=== PATIENT | male | born 1965 | race Caucasian/White ===

== ENCOUNTER 2024-05-26 05:38 | Day surgery (SDC) | payer BC ==
[2024-05-20 10:51] LABS: BASOPHILS % (AUTO) 0.7 % (0-1); EOSINOPHILS # (AUTO) 0.1 X10'3 (0-0.9); EOSINOPHILS % (AUTO) 2.7 % (0-6); LYMPHOCYTES # (AUTO) 1.7 X10'3 (1.1-4.8); LYMPHOCYTES % (AUTO) 34.6 % (21-51); MEAN CORPUSCULAR HEMOGLOBIN 29.9 PG (27.0-31.0); MEAN CORPUSCULAR VOLUME 87.8 FL (78-98); MEAN PLATELET VOLUME 8.4 FL (7.4-10.4); MONOCYTES # (AUTO) 0.4 X10'3 (0-0.9); MONOCYTES % (AUTO) 9.1 % (2-12); NEUTROPHILS # (AUTO) 2.5 X10'3 (1.8-7.7); NEUTROPHILS % (AUTO) 52.9 % (42-75); PRE OP HEMATOCRIT 44.1 % (42.0-52.0); PRE OP PLATELET COUNT 221 X10'3 (140-440); PRE OP WHITE BLOOD COUNT 4.8 10'3 (4.8-10.8); RED BLOOD COUNT 5.02 X10'6 (4.70-6.10); RED CELL DISTRIBUTION WIDTH 13.4 % (11.5-14.5)
[2024-05-20 10:59] LABS: ALBUMIN 3.8 G/DL (3.4-5.0); ALBUMIN/GLOBULIN RATIO 1.1 (1.1-1.5); ALKALINE PHOSPHATASE 77 IU/L (46-116); BLOOD UREA NITROGEN 20 MG/DL (7-18); BUN/CREATININE RATIO 18.7 (10.0-20.0); CALCIUM 8.9 MG/DL (8.5-10.1); CHLORIDE 103 MMOL/L (99-107); CREATININE 1.07 MG/DL (0.60-1.10); PRE OP ALT 35 U/L (30-65); PRE OP ANION GAP 6 (8-16); PRE OP AST 23 U/L (10-37); PRE OP BILIRUB, TOTAL 0.7 MG/DL (0.0-1.0); PRE OP GLUCOSE 79 MG/DL (70-104); PRE OP POTASSIUM 3.8 MMOL/L (3.4-5.1); PRE OP SODIUM 138 MMOL/L (135-145); TOTAL CARBON DIOXIDE 28.7 MMOL/L (24-32); TOTAL PROTEIN 7.2 G/DL (6.4-8.2); eGFR 71 ML/MIN
[~2024-05-26] VITALS: Ht 180.3 cm; Wt 83.2 kg
[2024-05-26] VITALS (12 sets, daily range): BP systolic 108–136; BP diastolic 52–80; PULSE 57–76; RESP 12–16; TEMP 98; O2SAT 98–100
[~2024-05-26 05:38] MED LIST: NO HOME MEDS
[2024-05-26] MEDS: ringers solution, lacted 1,000 ML IV SCH (06:08)
[2024-05-26] MEDS: famotidine 20mg tablet PO ONE (06:08)
[2024-05-26] MEDS: ceFAZolin 2gm in dextrose, iso 50 ML IV ONE (06:09)
[2024-05-26] MEDS ORDERED: LIDOcaine 1% 30ml preserv. free vial ONE (06:50)
[2024-05-26] MEDS ORDERED: BUPIVAcaine 2.5mg/ml inj 50ml vial (contains preservative) ONE (06:51)
[2024-05-26] MEDS ORDERED: propofol inj 20 ML IV ONE (07:17)
[2024-05-26] MEDS ORDERED: midazolam 1 mg/ML 2ml injection ONE (07:17)
[2024-05-26] MEDS ORDERED: fentaNYL/PF 50MCG/1 ML 2ML syringe ONE (07:17)
[2024-05-26] MEDS ORDERED: rocuronium 10mg/ml inj IV ONE (07:18)
[2024-05-26] MEDS ORDERED: sevoflurane 250ml liquid IH ONE (07:24)
[2024-05-26] MEDS ORDERED: acetaminophen 1,000mg/100ml IV 100 ML IV ONE (07:40)
[2024-05-26] MEDS ORDERED: ondansetron/PF 4mg/2ml inj IV PRN (08:10)
[2024-05-26] MEDS ORDERED: morphine 2 MG/ML inj. syringe IV PRN (08:10)
[2024-05-26] MEDS ORDERED: proCHLORperazine 10 MG/2 ml inj IV PRN (08:10)
[2024-05-26] MEDS ORDERED: morphine 4 MG/ML inj SYRINge IV PRN (08:10)
[2024-05-26] MEDS ORDERED: meperidine/PF 25mg/ml syringe IV PRN ×2 (08:10)
[2024-05-26] MEDS ORDERED: ringers solution, lacted 1,000 ML IV SCH (08:10)
[2024-05-26] MEDS ORDERED: dexamethasone sod phosphate 4mg/ml inj. ONE (08:37)
[2024-05-26] MEDS ORDERED: ondansetron/PF 4mg/2ml inj ONE (08:38)
[2024-05-26] MEDS ORDERED: glycopyrrolate 0.2mg/ml inj ONE (08:46)
[2024-05-26] MEDS ORDERED: neostigmine methylsulfate 1 MG/ML 10ml vial ONE (08:46)
[2024-05-26] MEDS: ketorolac trometh 30MG/ML vial 30 MG/ML VIAL IV ONE (09:12)
[2024-05-26] MEDS: meperidine/PF 25mg/ml syringe IV PRN (09:12)
[2024-05-26] MEDS: HYDROcodone/acetaminophen 5mg/325mg tablet PO PRN (09:44)
== END 2024-05-26 11:05 | disposition home or self-care (01) ==
LOC: PAS 05:38
PROVIDERS: ATTEND Surgery
DX: K40.20 Bilateral inguinal hernia, without obstruction or gangrene, not specified as recurrent (principal); K42.9 Umbilical hernia without obstruction or gangrene; R00.1 Bradycardia, unspecified; Z98.890 Other specified postprocedural states
CPT/HCPCS: 36415; 49591; 49650; 80053; 82948; 85025; 93005; J0131; J0690; J1100; J1885; J2175; J2250; J2405; J2704; J2710; J3010; J3490; J7120; S2900; Z7512; A4215; A4618; C1758; C1781